=== PATIENT | female | born 1955 | race African-American/Black ===

== ENCOUNTER 2018-04-03 15:45 | Emergency (ER) | payer MEDICAID ==
[~2018-04-03] VITALS: Ht 165.1 cm; Wt 88.0 kg
[2018-04-03] MEDS ORDERED: IBUPROFEN 600MG TABLET PO ONE (22:30)
[2018-04-03] MEDS ORDERED: CEFTRIAXONE SODIUM 250 MG/VIAL IM ONE (22:30)
[2018-04-03] MEDS ORDERED: DOXYCYCLINE HYCLATE 100MG CAPSULE PO ONE (22:30)
[2018-04-03 23:10] VITALS: BP 169/89
== END 2018-04-03 23:26 | disposition home or self-care (01) ==
LOC: ER 15:45
DX: M25.561 Pain in right knee (principal); M54.5 Low back pain; E11.9 Type 2 diabetes mellitus without complications; Z20.2 Contact with and (suspected) exposure to infections with a predominantly sexual mode of transmission; I10 Essential (primary) hypertension; N89.8 Other specified noninflammatory disorders of vagina; M54.31 Sciatica, right side; Z91.14 Patient's other noncompliance with medication regimen; Z87.891 Personal history of nicotine dependence
CPT/HCPCS: 87210; 87491; 87591; 96372; 99283; J0696

== ENCOUNTER 2022-06-17 06:41 | Emergency (ER) | payer MEDICAID ==
[~2022-06-17] VITALS: Ht 154.9 cm; Wt 59.0 kg
[2022-06-17 06:48] VITALS: BP 181/89
[2022-06-17] MEDS ORDERED: P-EP-312 MT (07:42)
[2022-06-17] MEDS ORDERED: IBUP-2029 MT (07:42)
== END 2022-06-17 08:00 | disposition home or self-care (01) ==
LOC: ER 06:41
DX: R04.0 Epistaxis (principal); E11.9 Type 2 diabetes mellitus without complications; I10 Essential (primary) hypertension
CPT/HCPCS: 99282

== ENCOUNTER 2024-06-06 13:15 | Emergency (ER) | payer MEDICAID, OTHER ==
[~2024-06-06] VITALS: Ht 157.5 cm; Wt 64.0 kg
[~2024-06-06 13:15] MED LIST: IBUP-2029 MT; P-EP-312 MT
[2024-06-06 13:18] VITALS: O2SAT 98
[2024-06-06 14:50] LABS: BASOPHILS % 0.7 % (0.0-2.0); EOSINOPHILS % 1.6 % (0.0-5.0); HEMATOCRIT. 35.6 % (36.0-48.0); HEMOGLOBIN. 11.8 g/dL (12.0-16.0); LYMPHOCYTES % 48.6 % (20.0-50.0); MEAN CORPUSCULAR HEMOGLOBIN 32.3 pg (28.0-32.0); MEAN CORPUSCULAR HGB CONC 33.3 g/dL (31.0-37.0); MEAN CORPUSCULAR VOLUME 97.1 fL (81.0-99.0); MEAN PLATELET VOLUME 8.3 fl (7.4-10.4); NEUTROPHILS % 40.1 % (40.0-76.0); PLATELET 202 x1000/uL (130-400); RED BLOOD CELL COUNT 3.66 mill/uL (4.2-5.4); RED CELL DISTRIBUTION WIDTH 14.7 % (11.6-14.6); WHITE BLOOD COUNT 4.4 x1000/uL (4.5-11.0)
[2024-06-06 14:54] LABS: CHLORIDE 110 mEq/L (98-107); POTASSIUM 3.6 mEq/L (3.5-5.1); SODIUM 145 mEq/L (136-145)
[2024-06-06 14:55] LABS: CALCIUM 9.3 mg/dL (8.7-10.4); CARBON DIOXIDE 23 mEq/L (21-32)
[2024-06-06 15:00] LABS: CREATININE 0.9 mg/dL (0.6-1.0); GLUCOSE 134 mg/dL (70-105); UREA NITROGEN BLOOD 10 mg/dL (9-23)
[2024-06-06 15:01] LABS: ETHANOL BLOOD 245 mg/dL (<10)
[2024-06-06 17:35] VITALS: BP 139/69; PULSE 72; RESP 14; TEMP 36.7; O2SAT 100
== END 2024-06-06 17:40 | disposition home or self-care (01) ==
LOC: ER 13:15
DX: R40.0 Somnolence (principal); I10 Essential (primary) hypertension
CPT/HCPCS: 36415; 80048; 80320; 85025; 99284; G0480